=== PATIENT | female | born 1970 ===

== ENCOUNTER 2022-12-26 06:27 | Day surgery (SDC) | payer OTHER ==
[~2022-12-26] VITALS: Ht 152.4 cm; Wt 59.0 kg
[~2022-12-26 06:27] MED LIST: CLARITIN5 MG PO; MULTIPLE VITAM1 EAC2 PO; SIMVASTATIN5 MG PO
== END 2022-12-26 11:25 | disposition home or self-care (01) ==
LOC: CIR.AMB 06:27
PROVIDERS: ATTEND Surgery
DX: K43.6 Other and unspecified ventral hernia with obstruction, without gangrene (principal); Z20.822 Contact with and (suspected) exposure to COVID-19; E78.5 Hyperlipidemia, unspecified
CPT/HCPCS: 49594; C1781